=== PATIENT | female | born 1940 | race Caucasian/White ===

== ENCOUNTER 2019-06-03 09:24 | Day surgery (SDC) | payer MEDICARE ==
[~2019-06-03 09:24] MED LIST: BUPIVACAINE HCL 0.75% INJ/PF (7.5 MG/1 ML) 10 ML SDV OD PRN; CHONDR SU A NA/HYALUR INTRAOC KIT (SURGICARE) ONE; EPINEPHRINE INJ/PF 1 MG/1 ML AMPULE ONE; LIDOCAINE 1% INJ-PF (10 MG/ML) 30 ML SDV ONE; LIDOCAINE 4% INJ/PF (40 MG/ML) 5 ML AMPUL OD PRN; MIDAZOLAM 2 MG/2 ML INJ ONE
[2019-06-03] MEDS: CYCLOPENTOLATE 0.2%/PHENYLEPHRINE 1% OPH SOLN 2 ML OD PRN ×3 (10:26→10:46)
[2019-06-03] MEDS: BESIFLOXACIN HCL 0.6% OPH SUSP 5 ML BOTTLE OD PRN ×3 (10:26→11:22)
[2019-06-03] MEDS: TETRACAINE HCL 0.5% OPH SOLN 4 ML OD PRN ×3 (10:26→10:55)
[2019-06-03] MEDS: KETOROLAC TROMETHAMINE 0.45% 4 DROP/0.4 ML DROPERETTE OD PRN ×2 (10:26→10:35)
[2019-06-03] MEDS: TROPICAMIDE 1% OPH SOLN 15 ML OD PRN ×3 (10:26→10:46)
[2019-06-03] MEDS: DORZOLAMIDE HCL 2%/TIMOLOL MALEAT 0.5% OPH SOLN 10 ML OD PRN ×2 (11:22)
--- NOTE | 2019-06-03 11:57 | Operative Report ---
Operative Report-[facility] Operative Report: DATE OF SURGERY: 06/03/2019 PREOPERATIVE DIAGNOSIS: CATARACT, RIGHT EYE. POSTOPERATIVE DIAGNOSIS: CATARACT,RIGHT EYE. PROCEDURE PERFORMED: PHACOEMULSIFICATION WITH POSTERIOR CHAMBER INTRAOCULAR LENS, RIGHT EYE. Intraocular Lens Model : Toric [id number] 24.0 Total Phaco Time: 6.72 CDE SURGEON: QUIN RAMIREZ MD ANESTHESIA: TOPICAL WITH MAC. INDICATIONS FOR SURGERY: Difficulty with night driving PROCEDURE: The patient was brought to the Operating Room and placed in a seated position. a lid speculum was placed in the eye. the 0.180, and 270 degree axis of the cornea was marked with a toric marker. the patien was place in a reclining position. Following tetracaine drops, topical anesthesia was administered. This consisted of instrument wipe pledgets soaked in a solution of 4% Xylocaine mixed with 0.75% Marcaine in a 1:2 ratio. A 2 x 1 cm pledget was placed in the superior for nix. A 1 x 1 cm pledget was placed in the inferior fornix. The eye was patched shut for 5 minutes. The patch was removed. The eye was sterilely prepped and draped in the usual manner. Lid speculum was placed in the eye. The pledgets were removed. 4-0 black silk sutures were placed around the superior and the inferior rectus muscles to be used as traction. A conjunctival peritomy was made at the 10 o'clock position. Hemostasis was obtained with bipolar cautery. A posterior limbal groove was created using a crescent knife and dissected anteriorly towards the cornea. A sharp point blade was used to create a paracentesis site at the 2 o'clock position. 0.2 cc non preserved Lidocaine was injected into the anterior chamber. A 2.4 mm keratome was used to enter the anterior chamber through the groove. Viscoelastic was injected into the anteriorchamber. An anterior capsulotomy was performed using Utrata forceps in acapsulorrhexis fashion. Hydrodissection and hydrodelineation were performed. Phacoemulsification was performed in [id number] technique. Following this, the I/A unit was used to remove residual cortex. Viscoelastic was injected into the capsular bag. The Intraocular lens was placed in the capsular bag. The 175 degree axis of the eye was marked using a toric marker and the previously marked sites as reference. The lens was centered at this axis. The I/A unit was used to remove residual viscoelastic. The wound was seen to be watertight under high and low pressure, and no sutures were placed. The intraocular lens was well centered. The pressure was adjusted in the eye to normal pressure. The 4-0 black silk sutures and lid speculum were removed. The eye was shielded after Besivance and Cosopt drops were placed. The patient tolerated the procedure well and was sent to the Recovery Room in good condition.
== END 2019-06-03 11:57 | disposition home or self-care (01) ==
LOC: SC 09:24
PROVIDERS: ATTEND Ophthalmology
DX: H25.813 Combined forms of age-related cataract, bilateral (principal); H01.002 Unspecified blepharitis right lower eyelid; H01.005 Unspecified blepharitis left lower eyelid; H04.123 Dry eye syndrome of bilateral lacrimal glands; H02.831 Dermatochalasis of right upper eyelid; H02.834 Dermatochalasis of left upper eyelid; E78.00 Pure hypercholesterolemia, unspecified; Z87.891 Personal history of nicotine dependence
CPT/HCPCS: 66984; V2787; J2250; J3490 ×5; A9270; J0171

== ENCOUNTER 2019-06-26 09:09 | Day surgery (SDC) | payer MEDICARE ==
[~2019-06-26 09:09] MED LIST changes: -BUPIVACAINE HCL 0.75% INJ/PF (7.5 MG/1 ML) 10 ML SDV OD PRN; +BUPIVACAINE HCL 0.75% INJ/PF (7.5 MG/1 ML) 10 ML SDV OS PRN; +KETOROLAC TROMETHAMINE 0.45% 4 DROP/0.4 ML DROPERETTE OS PRN; -LIDOCAINE 4% INJ/PF (40 MG/ML) 5 ML AMPUL OD PRN; +LIDOCAINE 4% INJ/PF (40 MG/ML) 5 ML AMPUL OS PRN
[2019-06-26] MEDS: BESIFLOXACIN HCL 0.6% OPH SUSP 5 ML BOTTLE OS PRN ×4 (09:47→11:22)
[2019-06-26] MEDS: CYCLOPENTOLATE 0.2%/PHENYLEPHRINE 1% OPH SOLN 2 ML OS PRN ×3 (09:47→10:07)
[2019-06-26] MEDS: TROPICAMIDE 1% OPH SOLN 15 ML OS PRN ×3 (09:47→10:07)
[2019-06-26] MEDS: TETRACAINE HCL 0.5% OPH SOLN 4 ML OS PRN ×3 (09:48→10:52)
[2019-06-26] MEDS: DORZOLAMIDE HCL 2%/TIMOLOL MALEAT 0.5% OPH SOLN 10 ML OS PRN ×2 (11:22)
--- NOTE | 2019-06-26 17:20 | Operative Report ---
Operative Report-[facility] Operative Report: DATE OF SURGERY: 06/26/2019 PREOPERATIVE DIAGNOSIS: CATARACT, LEFT EYE. POSTOPERATIVE DIAGNOSIS: CATARACT, LEFT EYE. PROCEDURE PERFORMED: PHACOEMULSIFICATION WITH POSTERIOR CHAMBER INTRAOCULAR LENS, LEFT EYE. Intraocular Lens Model : SN 60 WF 25.0 Total Phaco Time: 5.25 CDE SURGEON: QUIN RAMIREZ MD ANESTHESIA: TOPICAL WITH MAC. INDICATIONS FOR SURGERY: Difficultly driving at night PROCEDURE: The patient was brought to the Operating Room and placed on the operative table. Following tetracaine drops, topical anesthesia was administered. This consisted of instrument wipe pledgets soaked in a solution of 4% Xylocaine mixed with 0.75% Marcaine in a 1:2 ratio. A 2 x 1 cm pledget was placed in the superior fornix. A 1 x 1 cm pledget was placed in the inferior fornix. The eye was patched shut for 5 minutes. The patch was removed. The eye was sterilely prepped and draped in the usual manner. Lid speculum was placed in the eye. The pledgets were removed. 4-0 black silk sutures were placed around the superior and the inferior rectus muscles to be used as traction. A conjunctival peritomy was made at the 10 o'clock position. Hemostasis was obtained with bipolar cautery. A posterior limbal groove was created using a crescent knife and dissected anteriorly towards the cornea. A sharp point blade was used to create a paracentesis site at the 2 o'clock position. 0.2 cc non preserved Lidocaine was injected into the anterior chamber. A 2.4 mm keratome was used to enter the anterior chamber through the groove. Viscoelastic was injected into the anterior chamber. An anterior capsulotomy was performed using Utrata forceps in a capsulorrhexis fashion. Hydrodissection and hydrodelineation were performed. Phacoemulsification was performed in [id number] technique. Following this, the I/A unit was used to remove residual cortex. Viscoelastic was injected into the capsular bag. The Intraocular lens was placed in the capsular bag. The I/A unit was used to remove residual viscoelastic. The wound was seen to be watertight under high and low pressure, and no sutures were placed. The intraocular lens was well centered. The pressure was adjusted in the eye to normal pressure. The 4-0 black silk sutures and lid speculum were removed. The eye was shielded after Besivance,prednisolone, and Cosopt drops were placed. The patient tolerated the procedure well and was sent to the Recovery Room in good condition.
== END 2019-06-26 12:08 | disposition home or self-care (01) ==
LOC: SC 09:09
PROVIDERS: ATTEND Ophthalmology
DX: H25.812 Combined forms of age-related cataract, left eye (principal); Z96.1 Presence of intraocular lens; Z85.828 Personal history of other malignant neoplasm of skin
CPT/HCPCS: 66984; 00142; V2632; J2250; J3490 ×5; A9270; J0171; 142

== ENCOUNTER 2020-01-27 11:20 | Day surgery (SDC) | payer MEDICARE ==
[~2020-01-27 11:20] MED LIST changes: +BALANCED SALT IRRIG SOLN COMB2 15 ML BOTTLE ONE; +BUPIVACAINE HCL 0.75% INJ/PF (7.5 MG/1 ML) 10 ML SDV ONE; -BUPIVACAINE HCL 0.75% INJ/PF (7.5 MG/1 ML) 10 ML SDV OS PRN; -CHONDR SU A NA/HYALUR INTRAOC KIT (SURGICARE) ONE; -EPINEPHRINE INJ/PF 1 MG/1 ML AMPULE ONE; +FENTANYL CITRATE INJ/PF 100 MCG/2 ML AMPUL ONE; -KETOROLAC TROMETHAMINE 0.45% 4 DROP/0.4 ML DROPERETTE OS PRN; -LIDOCAINE 1% INJ-PF (10 MG/ML) 30 ML SDV ONE; +LIDOCAINE 2%/EPINEPHRINE INJ 20 ML VIAL ONE; -LIDOCAINE 4% INJ/PF (40 MG/ML) 5 ML AMPUL OS PRN; +POVIDONE-IODINE 5% OPH PREP SOLN 30 ML ONE; +TETRACAINE HCL 0.5% OPH SOLN 4 ML ONE
[2020-01-27] MEDS: THROMBIN (BOVINE) TOPICAL 5000 UNIT VIAL ONE ×2 (13:06→13:13)
[2020-01-27] MEDS: NEO/POLYMYX B SULF/DEXAMETH OPH OINTMENT 3.5 GM ONE ×2 (13:07→13:41)
--- NOTE | 2020-01-27 14:51 | Operative Report ---
Operative Report-[facility] Operative Report: DATE OF SURGERY: 01/27/2020 PREOPERATIVE DIAGNOSIS: Bilateral upper eyelid Dermatochalasis with visual field loss POSTOPERATIVE DIAGNOSIS: Bilateral upper eyelid Dermatochalasis with visual field loss PROCEDURE PERFORMED: Bilateral upper eyelid blepharoplasty SURGEON: Mana Escamilla MD ANESTHESIA: Local with MAC INDICATION FOR SURGERY: Eyelids blocking superior vision and having to forcibly open her eyelids to see PROCEDURE: The patient was brought to the operating room and both upper eyelids were sterilely prepped and draped in the usual manner. Tetracaine drops were placed in the eyes. Attention was directed to both upper lids where the upper lid crease was marked and 0.3 mm forceps were used to estimate the excess upper eyelid skin to be excised. This was marked in an elliptical fashion. Local anesthesia was administered. This consisted of 2% Xylocaine with epinephrine mixed with 0.75% Marcaine. Approximately 2.5 mL's of this was used to infiltrate both upper eyelids in the previous marked areas and the local anesthetic was diffuse with a Q-tip. Attention was directed to the left upper lid where the elliptical of skin was removed. Hemostasis was obtained with bipolar cautery. The orbital septum was opened and prolapse retroseptal fat was grasped with a hemostat, cut and cauterized. Thrombin soaked on a pad was placed on the incision. Identical procedure was performed on the right upper lid. Wound closure was completed with 3 interrupted 6-0 silk sutures, equally spaced through both upper lids, taking a deep bite of the fascia. This was followed by a running 6-0 nylon suture. There was full closure of the lids and good hemostasis at the end of the surgery. Maxitrol ointment was placed on both upper lids. Patient tolerated procedure well and sent to recovery room and in good condition.
== END 2020-01-27 14:25 ==
LOC: SC 11:20
PROVIDERS: ATTEND Ophthalmology
DX: H02.831 Dermatochalasis of right upper eyelid (principal); H02.834 Dermatochalasis of left upper eyelid; H53.453 Other localized visual field defect, bilateral; E78.00 Pure hypercholesterolemia, unspecified; K21.9 Gastro-esophageal reflux disease without esophagitis; Z87.891 Personal history of nicotine dependence; Z03.818 Encounter for observation for suspected exposure to other biological agents ruled out; J45.909 Unspecified asthma, uncomplicated; Z85.820 Personal history of malignant melanoma of skin; D64.9 Anemia, unspecified
CPT/HCPCS: 15823; U0003; J2250; J3490 ×6; J3010; A9270; C9803; 87635